=== PATIENT | male | born 2000 | race Caucasian/White ===

== ENCOUNTER 2025-10-29 07:35 | Emergency (ER) | payer OTHER ==
[~2025-10-29] VITALS: Ht 182.9 cm; Wt 81.6 kg
[2025-10-29 08:18] VITALS: BP 147/77; O2SAT 96
[2025-10-29] MEDS ORDERED: FAMOTIDINE/PF 20 MG/2 ML VIAL IV ONE (08:45)
[2025-10-29] MEDS ORDERED: 0.9 % SODIUM CHLORIDE 1,000 ML IV ONE (08:45)
[2025-10-29] MEDS ORDERED: CHOLESTYRAMINE/ASPARTAME LIGHT 4 G/PKT PACKET PO ONE (08:45)
[2025-10-29] MEDS ORDERED: CIPROFLOXACIN IN 5 % DEXTROSE 400 MG/200 ML PIGGYBAG IV ONE ×2 (08:45→08:55)
[2025-10-29] MEDS ORDERED: ONDANSETRON HCL 2 MG/ML VIAL IV ONE (08:45)
[2025-10-29] MEDS ORDERED: FAMOTIDINE/PF 20 MG/2 ML VIAL ONE (08:55)
[2025-10-29] MEDS ORDERED: ONDANSETRON HCL 2 MG/ML VIAL ONE (08:55)
[2025-10-29 09:15] LABS: BASO % 0.7 % (0.1-1.2); EOS # 0.06 (0.04-0.54); EOS % 0.7 % (0.7-7.0); LYMPH # 2.12 (1.18-3.74); LYMPH % 26.1 % (19.3-53.1); MEAN PLATELET VOLUME 9.00 fl (9.4-12.4); MONO # 1.03 (0.24-0.82); NEUT # 4.84 (1.56-6.13); NEUT % 59.6 % (34.0-71.1); RED CELL DISTRIBUTION WIDTH 12.4 % (11.6-14.4)
[2025-10-29 09:19] LABS: MONO % 12.7 % (4.7-12.5)
[2025-10-29 09:35] LABS: INR 1.11
[2025-10-29 09:40] LABS: ALT/SGPT 30.0 U/L (12-78); AST/SGOT 23.0 U/L (15-37); BILIRUBIN TOTAL 1.47 mg/dL (0.3-1.2); BUN CREA RATIO 12.0 (7.0-25.0); CREATININE SERUM 0.94 mg/dL (0.70-1.30); GFR 97.78; GLOBULINA 3.6 G/DL (2.4-3.5); GLUCOSE FASTING 93.0 mg/dL (65-100); OSMOLALITY SERUM 277.0 MOSM/KG (275-295)
[2025-10-29 10:40] LABS: COVID-19 AG NEGATIVE (NEGATIVE)
[2025-10-29] MEDS ORDERED: PROBIOTIC1 EAC2 PO (11:33)
[2025-10-29] MEDS ORDERED: METRONIDAZOLE500 MG PO (11:33)
[2025-10-29] MEDS ORDERED: CIPRO500 MG PO (11:33)
[2025-10-29] MEDS ORDERED: PEPCID AC20 MG PO (11:33)
== END 2025-10-29 12:17 | disposition home or self-care (01) ==
LOC: ER 07:35
PROVIDERS: General Practice
DX: R10.9 Unspecified abdominal pain (principal); A08.8 Other specified intestinal infections; R11.2 Nausea with vomiting, unspecified; Z20.822 Contact with and (suspected) exposure to COVID-19